=== PATIENT | female | born 1990 | race American Indian/Alaskan Native ===

== ENCOUNTER 2018-09-01 10:17 | Emergency (ER) | payer OTHER ==
--- NOTE | 2018-09-01 11:27 | C.PDOC ---
History Of Present Illness 27 year old female with a history of fallopian tube cancer, who finished chemotherapy in May, presents to the emergency department with complaints of subjective fever, myalgias, and right ear pain. Today, patient reports that she has been having cough with pinkish sputum. Patient states that she has not received the flu vaccination this season. Time Seen by Provider: 09/01/18 11:04 Chief Complaint (Nursing): Flu-like Symptoms History Per: Patient History/Exam Limitations: no limitations Onset/Duration Of Symptoms: Days Current Symptoms Are (Timing): Still Present Location Of Pain: Ear(s) (right), Throat, Diffuse Myalgias Associated Symptoms: Fever, Cough, Sputum, Myalgias Ear Symptoms: Right: Ear Pain Past Medical History Reviewed: Historical Data, Nursing Documentation, Vital Signs Vital Signs: Last Vital Signs Temp 99.6 F 09/01/18 10:25 Pulse 101 H 09/01/18 10:25 Resp 18 09/01/18 10:25 BP 110/70 09/01/18 10:25 Pulse Ox 98 09/01/18 10:25 - Medical History PMH: No Chronic Diseases Surgical History: No Surg Hx Family History: States: No Known Family Hx - Social History Hx Alcohol Use: No Hx Substance Use: No - Immunization History Hx Tetanus Toxoid Vaccination: No Hx Influenza Vaccination: No Hx Pneumococcal Vaccination: No Review Of Systems Constitutional: Positive for: Fever ENT: Positive for: Ear Pain (right) Respiratory: Positive for: Cough, Sputum Musculoskeletal: Positive for: Other (myalgias) Physical Exam - Physical Exam Appears: Non-toxic, In Acute Distress (uncomfortable) Skin: Normal Color, Warm, Dry Head: Atraumatic, Normacephalic Eye(s): bilateral: Normal Inspection, PERRL, EOMI Ear(s): Left: Normal, Right: TM Erythema Nose: Normal Oral Mucosa: Moist Throat: Normal, No Erythema, No Exudate Neck: Normal, Supple Lymphatic: No Adenopathy Chest: Symmetrical, No Tenderness Cardiovascular: Rhythm Regular (tachycardic), No Murmur Respiratory: Normal Breath Sounds, No Rales, No Rhonchi, No Wheezing Gastrointestinal/Abdominal: Soft, No Tenderness, No Guarding, No Rebound Extremity: Normal ROM Neurological/Psych: Oriented x3, Normal Speech, Normal Cognition ED Course And Treatment O2 Sat by Pulse Oximetry: 98 (RA) Pulse Ox Interpretation: Normal Medical Decision Making Medical Decision Making: plan: CXR Tylenol 975mg PO POC Urine pt feeling better after nebulizer treatment (less coughing). lungs cta, and cxr neg. tx with tamiflu., albuterol and tylenol. Disposition Counseled Patient/Family Regarding: Studies Performed, Diagnosis, Need For Followup, Rx Given - Disposition Disposition: HOME/ ROUTINE Disposition Time: 12:46 Condition: GOOD Additional Instructions: Drink increased fluids. Tylenol or Motrin for pain or fever. Use inhaler 2 puffs every 6 hours if needed. Follow up with your doctor on Tuesday. Complete Tamiflu. Return to ER for any worse symptoms. Avoid dairy products for a few days. 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 - Scribe Statement The provider has reviewed the documentation as recorded by the Scribe (Rasta Ross) All medical record entries made by the Scribe were at my direction and personally dictated by me. I have reviewed the chart and agree that the record accurately reflects my personal performance of the history, physical exam, medical decision making, and the department course for this patient. I have also personally directed, reviewed, and agree with the discharge instructions and disposition.
[2018-09-01 12:28] VITALS: BP 113/79; PULSE 82; RESP 20; TEMP 99.7
[2018-09-01] MEDS ORDERED: Albuterol 0.083% Inhal Sol (2.5 mg/3 mL) UD ONE (12:28)
[2018-09-01 12:50] VITALS: O2SAT 98
--- NOTE | 2018-09-01 13:16 | RAD ---
Date of service: 09/01/2018 HISTORY: Cough and hemoptysis COMPARISON: No prior. TECHNIQUE: Chest PA and lateral FINDINGS: LINES AND TUBES: None. LUNG AND PLEURA: The lungs are well inflated and clear. No pleural effusion or pneumothorax. HEART AND MEDIASTINUM: The heart is not enlarged. No aortic atherosclerotic calcification present. The hilar and mediastinal contours are within normal limits. SKELETAL STRUCTURES: The bony structures are within normal limits for the patient's age. VISUALIZED UPPER ABDOMEN: Normal. OTHER FINDINGS: None. IMPRESSION: No active pulmonary disease.
== END 2018-09-01 12:53 | disposition home or self-care (01) ==
LOC: C.ER 10:17
DX: J11.1 Influenza due to unidentified influenza virus with other respiratory manifestations (principal)

== ENCOUNTER 2018-12-25 13:36 | Emergency (ER) | payer OTHER ==
[2018-12-25 13:48] VITALS: RESP 20; O2SAT 100
[2018-12-25 14:19] LABS: HCG,QUALITATIVE URINE NEGATIVE (NEGATIVE)
[2018-12-25 14:25] LABS: SQUAMOUS EPITHIAL 1 /hpf (0-5); URINE BILIRUBIN NEGATIVE (NEGATIVE); URINE BLOOD 2+ (NEGATIVE); URINE CLARITY Clear (Clear); URINE COLOR Straw (YELLOW); URINE GLUCOSE (UA) NORMAL (Normal); URINE LEUKOCYTE ESTERASE NEG Leu/uL (Negative); URINE PROTEIN NEGATIVE (NEGATIVE); URINE UROBILINOGEN NORMAL mg/dL (0.2-1.0)
[2018-12-25 14:43] LABS: BASO # 0.1 K/uL (0.0-0.2); BASO % 0.7 % (0.0-2.0); EOS # 0.1 K/uL (0.0-0.7); EOS % 0.8 % (0.0-4.0); HEMOGLOBIN 12.4 g/dL (11.0-16.0); LYMPH # 1.7 K/uL (1.0-4.3); LYMPH % 23.1 % (20.0-40.0); MEAN CELL VOLUME 89.4 fL (81.0-99.0); MEAN CORPUSCULAR HEMOGLOBIN 30.3 pg (27.0-31.0); MEAN CORPUSCULAR HGB CONC 33.9 g/dL (33.0-37.0); MEAN PLATELET VOLUME 7.9 fL (7.2-11.7); MONO # 0.5 K/uL (0.0-0.8); MONO % 6.5 % (0.0-10.0); NEUT % 68.9 % (50.0-75.0); RBC 4.09 Mil/uL (3.80-5.20); RED CELL DISTRIBUTION WIDTH 13.3 % (11.5-14.5); WHITE BLOOD COUNT 7.2 K/uL (4.8-10.8)
[2018-12-25 14:58] LABS: ALB/GLOB RATIO 1.2 (1.0-2.1); ALBUMIN 4.4 g/dL (3.5-5.0); ALT/SGPT 14 U/L (9-52); AST/SGOT 22 U/L (14-36); BLOOD UREA NITROGEN 9 mg/dL (7-17); CALCIUM 9.9 mg/dl (8.6-10.4); GFR NON-AFRICAN AMERICAN > 60; LIPASE 177 U/L (23-300)
[2018-12-25 16:25] VITALS: BP 113/74; PULSE 67; TEMP 97.5
--- NOTE | 2018-12-25 16:46 | US ---
Date of service: 12/25/2018 HISTORY: lower abd pain bleeding - r/o TOA vs torsion COMPARISON: None available. TECHNIQUE: Transabdominal and transvaginal pelvic ultrasound was performed. FINDINGS: UTERUS: Measures 6.7 x 3.2 x 4.2 cm. Normal in size and appearance. No fibroid or other mass lesion seen. ENDOMETRIUM: Measures 7.0 mm in diameter. Normal in appearance. CERVIX: No cervical abnormality identified. RIGHT OVARY: Measures 3.4 x 2.1 x 3.0 cm. No solid mass. Normal flow. There are multiple small follicles. LEFT OVARY: Measures 2.8 x 1.6 x 2.8 cm. No solid mass. Normal flow. There are multiple small follicles. FREE FLUID: There is trace free fluid in the right adnexa. OTHER FINDINGS: None. IMPRESSION: No evidence for ovarian cyst. Trace free fluid in the right adnexa. Normal appearance of the uterus and endometrium.
--- NOTE | 2018-12-25 18:38 | C.PDOC ---
Time Seen by Provider: 12/25/18 13:48 Chief Complaint (Nursing): Abdominal Pain Past Medical History Vital Signs: Last Vital Signs Temp 97.5 F L 12/25/18 16:24 Pulse 67 12/25/18 16:24 Resp 20 12/25/18 16:24 BP 113/74 12/25/18 16:24 Pulse Ox 100 12/25/18 16:24 Family History: States: No Known Family Hx - Social History Hx Alcohol Use: No Hx Substance Use: No - Immunization History Hx Tetanus Toxoid Vaccination: No Hx Influenza Vaccination: No Hx Pneumococcal Vaccination: No ED Course And Treatment - Laboratory Results Result Diagrams: 12/25/18 14:38 12/25/18 14:38 Lab Results: Total Bilirubin 0.5 mg/dL (0.2-1.3) 12/25/18 14:38 AST 22 U/L (14-36) 12/25/18 14:38 ALT 14 U/L (9-52) 12/25/18 14:38 Alkaline Phosphatase 56 U/L (38-126) 12/25/18 14:38 Total Protein 8.2 g/dL (6.3-8.3) 12/25/18 14:38 Albumin 4.4 g/dL (3.5-5.0) 12/25/18 14:38 Globulin 3.7 gm/dL (2.2-3.9) 12/25/18 14:38 Albumin/Globulin Ratio 1.2 (1.0-2.1) 12/25/18 14:38 Lipase 177 U/L (23-300) 12/25/18 14:38 Urine Color Straw (YELLOW) 12/25/18 14:08 Urine Clarity Clear (Clear) 12/25/18 14:08 Urine pH 8.0 (5.0-8.0) 12/25/18 14:08 Ur Specific [place] 1.005 (1.003-1.030) 12/25/18 14:08 Urine Protein Negative mg/dL (NEGATIVE) 12/25/18 14:08 Urine Glucose (UA) Normal mg/dL (Normal) 12/25/18 14:08 Urine Ketones Negative mg/dL (NEGATIVE) 12/25/18 14:08 Urine Blood 2+ (NEGATIVE) H 12/25/18 14:08 Urine Nitrate Negative (NEGATIVE) 12/25/18 14:08 Urine Bilirubin Negative (NEGATIVE) 12/25/18 14:08 Urine Urobilinogen Normal mg/dL (0.2-1.0) 12/25/18 14:08 Ur Leukocyte Esterase Neg Ayaan/uL (Negative) 12/25/18 14:08 Urine WBC (Auto) < 1 /hpf (0-5) 12/25/18 14:08 Urine RBC (Auto) 4 /hpf (0-3) H 12/25/18 14:08 Ur Squamous Epith Cells 1 /hpf (0-5) 12/25/18 14:08 Urine HCG, Qual Negative (NEGATIVE) 12/25/18 14:08 Urine HCG, Qual Negative (NEGATIVE) 12/25/18 14:08 O2 Sat by Pulse Oximetry: 100 Disposition - Disposition Referrals: [facility], [Non-Staff] - Disposition: HOME/ ROUTINE Disposition Time: 16:30 Condition: IMPROVED Additional Instructions: PROTASIA DLAMINI, thank you for letting us take care of you today. The emergency medical care you received today was directed at your acute symptoms. If you were prescribed any medication, please fill it and take as directed. It may take several days for your symptoms to resolve. Return to the Emergency Department if your symptoms worsen, do not improve, or if you have any other problems. Please contact your doctor or call one of the physicians/clinics you have been referred to that are listed on the Patient Visit Information form that is includ ed in your discharge packet. Bring any paperwork you were given at discharge with you along with any medications you are taking to your follow up visit. Our treatment cannot replace ongoing medical care by a primary care provider outside of the emergency department. Thank you for allowing the [facility] team to be part of your care today. 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 Instructions: Ovarian Cyst (DC) Forms: [facility] (Nepali) - Clinical Impression Clinical Impression: Ovarian cyst
== END 2018-12-25 17:30 | disposition home or self-care (01) ==
LOC: C.ER 13:36
DX: N83.209 Unspecified ovarian cyst, unspecified side (principal)
CPT/HCPCS: 76830; 76856; 80053; 81001; 83690; 84703; 85025; 96374; 99285; J1885